=== PATIENT | female | born 1965 | race Hispanic/Latino ===

== ENCOUNTER 2016-11-02 15:57 | Emergency (ER) | payer SELFPAY ==
[~2016-11-02] VITALS: Ht 152.4 cm; Wt 62.5 kg
[2016-11-02 16:17] VITALS: BP 117/76; PULSE 82; RESP 18; O2SAT 100
[2016-11-02 17:47] LABS: BASOPHILS % (AUTO) 0.6 % (0-3); EOSINOPHILS % (AUTO) 6.6 % (0-5); MONOCYTES % (AUTO) 11.5 % (4-12); Mean Corpuscular Volume 75.5 fL (81-100); NEUTROPHILS % (AUTO) 63.3 % (40-74); Platelet Count 449 bil/L (150-400)
[2016-11-02 18:00] LABS: APPEARANCE,URINE HAZY (CLEAR,HAZY); COLOR,URINE YELLOW (YELLOW); PH,URINE 5.5 (5.0-8.0)
[2016-11-02] MEDS ORDERED: Pantoprazole 4 mg/mL 10 mL Inj IVPUSH ONE (18:00)
[2016-11-02] MEDS ORDERED: Ondansetron 2 mg/mL 2 mL Inj IVPUSH PRN (18:00)
[2016-11-02] MEDS ORDERED: 0.9% Sodium Chloride 1,000 ML IV ONE (18:00)
[2016-11-02 18:01] LABS: OCCULT BLOOD,URINE SMALL (NEGATIVE); UROBILINOGEN,URINE NORMAL (NORMAL)
[2016-11-02 18:09] LABS: Magnesium 2.1 mg/dL (1.6-2.6)
--- NOTE | 2016-11-02 18:31 | ED.REPORT ---
HPI-Abd Pain F 40 and Over Date of Service Nov 02, 2016 ED Provider: Abelardo Dahl MD This is a 50-year-old indigenous [place] woman who speaks only Mixtecan with a little bit of broken Bahamian. 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 My communication attempts with them are in Bahamian. Neither of them speak Cuban. For the past few days she has been experiencing significant abdominal pain. She has had no fever but has felt nauseated and has not vomited. She has no urinary difficulty nor is she having diarrhea. She identifies the pain is upper abdominal pain. She is unable to describe it any more detail than this. I looked through the hospital record and found that she was admitted to the hospital for a vague abdominal pain in 2005 and then seen in the emergency department again in 2010 for similar complaints. Workups for those encounters included CT imaging and upper endoscopy neither of which elucidated a cause for the pain. Nursing Notes Stated Complaint: STOMACH PAIN Chief Complaint: Female Abdominal Pain Allergies: Coded Allergies: No Known Allergies (Unverified , 05/22/06) General Time Seen by MD: 17:47 Chief Complaint Abdominal pain Hx Obtained From: Patient, Spouse Sudden in Onset?: No Past Medical History Past Medical History Other than previous episodes of this documented in the history of present illness, the patient denies any medical conditions. Denies: Cancer, Coronary artery disease, Diabetes mellitus, Hypertension Past Surgical History The patient denies any previous abdominal surgeries though her chart states that she has had a tubal ligation. Smoking History Never Smoker Social History Alcohol Use: Denies alcohol use Drug Use: Denies drug use Review of Systems Review of systems is extremely limited secondary to language barrier. Complete sys rev & neg: except as marked. Physical Exam Vital Signs Vital Signs (First) Date Time Temp Pulse Resp B/P Pulse Ox O2 Delivery O2 Flow Rate FiO2 11/02/16 16:17 82 18 117/76 100 Initial VS: Reviewed Head / Eyes: Atraumatic, Normocephalic ENT: Mucous membranes moist, No scleral icterus Neck: Supple, Non-tender Skin: Warm, Dry, No cyanosis Neurologic: Alert, Oriented, Nonfocal Psychiatric: Mood/affect normal, Behavior normal General/Constitutional: Awake, Alert, No acute distress Respiratory / Chest: Atraumatic, Breath sounds NL, Breath sounds = bilat, No respiratory distress Cardiovascular: Heart rate NL, Regular rhythm Abdomen: Atraumatic, Soft, No guarding, No rebound, BS normoactive, No distention, No hernia, No palpable mass, No pulsatile mass She has mild upper abdominal tenderness without guarding or mass Skin: Atraumatic, Color NL, No rash Interpretation & Diagnostics Lab Results Interpretation Result Diagram: 11/02/16 1737 11/02/16 1737 Test 11/02/16 17:37 11/02/16 17:47 11/02/16 18:05 White Blood Count 6.5th/mm3 (3.8-10.1) Red Blood Count 4.41mil/mm3 (3.90-5.20) Hemoglobin 10.6g/dL (12.0-15.6) Hematocrit 33.3% (35.0-46.0) Mean Corpuscular Volume 75.5fL (81-100) Mean Corpuscular Hemoglobin 24.0pg (27.0-35.0) Mean Corpuscular Hemoglobin Concent 31.8% (32.0-37.0) Red Cell Distribution Width 16.0% (12.3-15.4) Platelet Count 449bil/L (150-400) Neutrophils (%) (Auto) 63.3% (40-74) Lymphocytes (%) (Auto) 17.8% (14-46) Monocytes (%) (Auto) 11.5% (4-12) Eosinophils (%) (Auto) 6.6% (0-5) Basophils (%) (Auto) 0.6% (0-3) Sodium Level 137mEq/L (134-144) Potassium Level 3.7mEq/L (3.5-5.2) Chloride Level 102mEq/L (97-108) Carbon Dioxide Level 22mmol/L (18-29) Blood Urea Nitrogen 7mg/dL (6-24) Creatinine 0.40mg/dL (0.57-1.00) Estimat Glomerular Filtration Rate 244mL/min (>59) Glucose Level 93mg/dL (60-99) Calcium Level 8.6mg/dL (8.5-10.1) Magnesium Level 2.1mg/dL (1.6-2.6) Total Bilirubin 0.4mg/dL (0.0-1.2) Aspartate Amino Transf (AST/SGOT) 30U/L (0-50) Alanine Aminotransferase (ALT/SGPT) 17U/L (0-32) Alkaline Phosphatase 117U/L (25-150) Total Protein 7.7g/dL (6.4-8.4) Albumin 3.9g/dL (3.4-5.0) Lipase 24U/L (13-60) Urine Color Yellow (YELLOW) Urine Appearance Hazy (CLEAR,HAZY) Urine pH 5.5 (5.0-8.0) Urine Specific Berry 1.025 (1.003-1.035) Urine Protein Negativemg/dL (NEG,TRACE) Urine Glucose (UA) Negativemg/dL (NEGATIVE) Urine Ketones 15mg/dL (NEGATIVE) Urine Occult Blood Small (NEGATIVE) Urine Nitrite Negative (NEGATIVE) Urine Bilirubin Negative (NEGATIVE) Urine Urobilinogen Normalmg/dL (NORMAL) Urine Leukocyte Esterase Negative (NEGATIVE) Urine RBC 0-2/hpf (0-2) Urine WBC 0-5/hpf (0-5) Urine Epithelial Cells None/hpf (NONE-MOD) Urine Crystals None seen (NONE SEEN) Urine Bacteria None/hpf (NONE-FEW) Urine Hyaline Casts None/lpf (NONE) Urine Granular Casts None seen (NONE SEEN) Urine Waxy Casts None seen (NONE SEEN) Urine Red Blood Cell Casts None seen (NONE SEEN) Urine White Blood Cell Casts None seen (NONE SEEN) Urine Mucus Present (None Seen) Urine Trichomonas None seen (NONE SEEN) Urine Yeast None (NONE SEEN) Urinalysis Comment None Urine Culture Reflexed Not indicated Re-Eval/Medical Decision Re-Evaluation/Progress : Time of Eval: 18:37 Patient Status: Moderate relief Re-Evaluation/Progress Note: Patient speaks to her and then he tells me in Bahamian that she feels somewhat better and that the pain has passed. Discharge & Departure Primary Impression: Acute abdominal pain Disposition: Home Patient Instructions: Acute Abdominal Pain (ED) Additional Instructions: No dangerous cause for your abdominal pain is suspected at this time. All the testing of the blood and urine are normal. You do have a slight anemia which you have had before. The anemia probably does not have anything to do with the abdominal pain. Use naproxen for pain as needed and ondansetron as needed for nausea. Follow up with Dr. Deng tomorrow or if your symptoms are not much better. Return to the emergency department if you are feeling much worse especially if you have a fever greater than 101. Referrals: Jade Deng MD (PCP) copies to: Jade Deng MD, Kirk H MD Nov 02, 2016 18:31
[2016-11-02] MEDS ORDERED: NAPR550T44 PO (18:42)
[2016-11-02] MEDS ORDERED: ONDA4TAB9 PO (18:42)
[2016-11-02 19:44] VITALS: BP 127/76; PULSE 78; RESP 17; O2SAT 99
== END 2016-11-02 19:46 | disposition home or self-care (01) ==
LOC: SED 15:57
DX: R10.10 Upper abdominal pain, unspecified (principal)
CPT/HCPCS: 36415; 80053; 81000; 83690; 83735; 85025; 96361; 96374; 96375; 99285; J2405; J7030